=== PATIENT | female | born 1930 | race Caucasian/White ===

== ENCOUNTER 2017-12-28 13:03 | Inpatient (IN) | payer MEDICARE, OTHER ==
[~2017-12-28] VITALS: Ht 162.6 cm; Wt 64.4 kg
[2017-12-28 13:09] VITALS: BP 150/63
[2017-12-28] MEDS ORDERED: MAXZIDE-25 MG1 EACH PO (13:16)
[2017-12-28] MEDS ORDERED: EVISTA PO (13:16)
[2017-12-28] MEDS ORDERED: TIROSINT25 MCG PO (13:17)
[2017-12-28] MEDS ORDERED: LOVASTATIN 20 M20 MG PO (13:17)
[2017-12-28] MEDS ORDERED: COMBIGAN EYE DR10 ML INTRAOCULR (13:19)
[2017-12-28] MEDS ORDERED: LUMIGAN5 ML INTRAOCULR (13:19)
[2017-12-28 13:30] LABS: ABSOLUTE BASOPHILS 0.1 thou/uL (0.0-0.2); ABSOLUTE LYMPHOCYTES 1.4 thou/uL (0.8-5.3); ABSOLUTE MONOCYTES 0.6 thou/uL (0.0-1.2); ABSOLUTE NEUTROPHILS 7.8 thou/uL (1.6-8.1); BASOPHILS 0.7 %; EOSINOPHILS 0.3 %; HEMOGLOBIN 15.1 gm/dL (12.0-15.0); LYMPHOCYTES 13.7 %; MCH 30.1 pg (26.0-34.0); MCHC 33.4 g/dL (28.0-37.0); MCV 89.9 fL (80.0-100.0); MONOCYTES 6.2 %; MPV 7.6 fl. (7.2-11.1); NUCLEATED RBCS 0 /100WBC; PLATELET COUNT* 236 thou/uL (150-400); POLYS 79.1 %; RBC 5.01 mil/uL (4.20-5.00); RDW-CV 13.8 % (10.5-14.5); WBC 9.9 thou/uL (4.0-11.0)
[2017-12-28 13:41] LABS: CALCIUM 9.6 mg/dL (8.5-10.1); CREATININE 0.9 mg/dL (0.6-1.3); POTASSIUM 4.9 mmol/L (3.5-5.1)
[2017-12-28 13:54] LABS: APTT 24.1 Seconds (25.0-31.3)
[2017-12-28 13:57] LABS: ALBUMIN 3.6 g/dL (3.4-5.0); CK-MB MASS 3.3 ng/mL (<0.5-3.6); MAGNESIUM 1.7 mg/dL (1.8-2.4); TOTAL BILIRUBIN 0.4 mg/dL (<0.1-1.0); TOTAL PROTEIN 7.9 g/dL (6.4-8.2)
[2017-12-28 14:00] LABS: TROPONIN-I LEVEL 0.6 ng/mL (<0.06)
[2017-12-28 15:33] VITALS: BP 142/93
[2017-12-28 15:55] VITALS: BP 130/71
[2017-12-28 20:00] VITALS: BP 131/83
[2017-12-29 00:09] VITALS: BP 88/50
[2017-12-29 04:00] VITALS: BP 93/63
[2017-12-29 07:05] LABS: HEMATOCRIT 40.2 % (37.0-47.0); HEMOGLOBIN 13.6 gm/dL (12.0-15.0); MCH 30.1 pg (26.0-34.0); MCHC 33.7 g/dL (28.0-37.0); MCV 89.3 fL (80.0-100.0); RBC 4.5 mil/uL (4.20-5.00); RDW-CV 13.7 % (10.5-14.5); WBC 8.1 thou/uL (4.0-11.0)
[2017-12-29 07:25] LABS: ALBUMIN 2.9 g/dL (3.4-5.0); CALCIUM 8.9 mg/dL (8.5-10.1); MAGNESIUM 1.9 mg/dL (1.8-2.4); TOTAL BILIRUBIN 0.3 mg/dL (<0.1-1.0); TOTAL PROTEIN 6.7 g/dL (6.4-8.2)
[2017-12-29 07:36] LABS: POTASSIUM 3.5 mmol/L (3.5-5.1)
[2017-12-29 08:00] VITALS: BP 127/67
[2017-12-29] MEDS ORDERED: EVISTA PO (08:22)
[2017-12-29 12:00] VITALS: BP 132/75
--- NOTE | 2017-12-29 14:45 | EKG ---
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: Grabiel PÉREZ : 1930 Requested By: Mckinley Odom Order Number: [id number] MD: Bayron Escobar Measurements Intervals [place] Rate: 104 P: -14 [place]: 185 QRS: -70 QRSD: 133 T: -34 QT: 345 QTc: 454 Interpretive Statements Sinus tachycardia with PACs Right bundle branch block Anterolateral infarct, age indeterminate Baseline wander in lead(s) V6 No previous ECG available for comparison Electronically Signed On 12-29-2017 14:44:47 CDT by Bayron Escobar [email or web address] <ELECTRONICALLY SIGNED> By: Bayron Escobar MD, FACC 12/29/17 1444 1311 1311 Bayron Escobar MD, FAC /EPI
[2017-12-29 16:00] VITALS: BP 118/66
[2017-12-29 20:00] VITALS: BP 123/73
[2017-12-30] VITALS: BP 112/65
[2017-12-30 03:59] LABS: HEMATOCRIT 39.8 % (37.0-47.0); HEMOGLOBIN 13.3 gm/dL (12.0-15.0); MCH 30.3 pg (26.0-34.0); MCHC 33.5 g/dL (28.0-37.0); MCV 90.4 fL (80.0-100.0); MPV 7.8 fl. (7.2-11.1); RBC 4.41 mil/uL (4.20-5.00); RDW-CV 13.8 % (10.5-14.5); WBC 8.7 thou/uL (4.0-11.0)
[2017-12-30 04:00] VITALS: BP 111/78
[2017-12-30 04:16] LABS: ANION GAP 8 mmol/L (7-16); BUN 17 mg/dL (7-18); CALCIUM 8.8 mg/dL (8.5-10.1); CHLORIDE 101 mmol/L (98-107); CO2 29 mmol/L (21-32); GLUCOSE 108 mg/dL (70-99); MAGNESIUM 1.9 mg/dL (1.8-2.4); POTASSIUM 3.9 mmol/L (3.5-5.1); SODIUM 138 mmol/L (136-145)
[2017-12-30 04:34] LABS: CHOLESTEROL 147 mg/dL (<200); HDL CHOLESTEROL 50 mg/dL (>40); LDL CHOLESTEROL 63 mg/dL (<100); SERUM ASSESSMENT CLEAR; TC:HDL 2.9 Ratio (Not establshd); TRIGLYCERIDE 174 mg/dL (<150); VLDL 35 mg/dL (<40)
[2017-12-30 08:30] VITALS: BP 135/80
[2017-12-30] MEDS ORDERED: XARELTO15 MG PO (09:24)
[2017-12-30] MEDS ORDERED: XARELTO20 MG PO (09:24)
--- NOTE | 2017-12-30 10:36 | CON ---
[facility] [address] [place] [address] CONSULTATION Name: DESIREE RAMON Room: [address] IN M.R.#: [id number] Admission: 12/28/17 Attend Phys: Manny Powell, Discharge: Date of : 34 Report #: [id number] THIS REPORT FOR: //name// CC: Manny Oropeza DATE OF SERVICE: 12/29/2017 REFERRING PHYSICIAN: Manny Powell M.D. CHIEF COMPLAINT: Shortness of breath. HISTORY OF PRESENT ILLNESS: The patient is an 87-year-old female who gives a history of developing shortness of breath. She states that her shortness of breath was actually noticeable back in August of this year. It was intermittent, but was not enough that it limited her activity. It was not until the last 24-48 hours that her shortness of breath suddenly worsened. She had no other associated symptoms during the course of her acute worsening shortness of breath. She denied palpitations, cough, hemoptysis, abdominal pain, chest pain. She did not have any ankle swelling or calf tenderness. According to the patient and the family that is present, she did have a trip to [facility], a ride in a car for approximately 2 hours at the most, but they did have intermittent stops. ALLERGIES: PENICILLIN. SOCIAL HISTORY: Lifelong nonsmoker. She is and lives with her . PAST MEDICAL HISTORY: Hysterectomy, hypothyroidism. REVIEW OF SYSTEMS: System review negative other than what is outlined above. FAMILY HISTORY: Positive for hypertension. There is no family history of thromboembolic disorder. MEDICATIONS: She is on IV heparin. PHYSICAL EXAMINATION: VITAL SIGNS: Blood pressure 127/67, respiratory rate 16 and nonlabored, pulse rate 67 and regular, temperature 98 degrees. GENERAL APPEARANCE: Awake, alert, oriented, in no respiratory distress. She is on room air, O2 saturation 97%. HEENT: Atraumatic. EYES: Pupils are round, equal, and reactive. Sclerae and conjunctivae are clear. Oral cavity is moist, [place] [address] CONSULTATION Name: DESIREE RAMON Room: [address] IN [facility].#: [id number] Admission: 12/28/17 Attend Phys: Manny Powell, Discharge: Date of : 32 Report #: [id number] NECK: There is no adenopathy, JVD, or fullness in the supraclavicular area. CHEST: Examination in the lying and sitting position anteriorly and posteriorly are clear bilaterally. No audible wheezes, rales or rhonchi. CARDIOVASCULAR: Regular rhythm without murmurs or rubs. No appreciable PVCs. ABDOMEN: Soft, without organomegaly or tenderness. EXTREMITIES: Negative for edema. No evidence of clubbing. SKIN: Warm and dry without rash. NEUROLOGIC: Moves all 4 extremities. Strength equal bilaterally. LABORATORY DATA: Today, her sodium 138, potassium 3.5, chloride 101, CO2 of 29, BUN of 20, creatinine 1.0. EGFR 53. On admission, her troponin was 0.6. ProBNP was just slightly elevated at 691. INR initially was 1.1. D-dimer was 4.74. Today, her hemoglobin and hematocrit are 13.6 and 40 with a white count of 8100, platelet count of 213,000. MEDICAL IMAGING STUDIES: Venous ultrasound studies of lower extremities are pending. CTA of the chest performed revealing extensive bilateral pulmonary emboli seen as proximal as a right main pulmonary artery, extending into the lobar, segmental and subsegmental areas. 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 ASSESSMENT: 1. Pulmonary emboli, etiology undetermined. 2. Anterior mediastinal mass, favoring a thymoma. RECOMMENDATION: The patient will continue with her anticoagulation, could transition to oral medication at this time. Venous Dopplers will be obtained. Echocardiogram is scheduled as well. On further discussion, she has no history of underlying malignancy. Although a CT of the abdomen and pelvis may be warranted to rule out occult carcinoma. We will go ahead and order these as well. <ELECTRONICALLY SIGNED> By: Ye Armstrong MD 12/30/17 1036 0858 1257[place] MD /nt
[2017-12-30 12:00] VITALS: BP 128/73
[2017-12-30 13:22] VITALS: BP 128/73
--- NOTE | 2017-12-30 15:27 | 2DMMODE ---
[place] [address] 2 D/M-MODE ECHOCARDIOGRAM Name: DESIREE RAMON Room: [address] IN [facility]#: [id number] Admission: 12/28/17 Attend Phys: Manny Cooper Discharge: 12/30/17 Date of : 34 Date of Service: 12/30/17 1526 Report #: [id number] THIS REPORT FOR: //name// APPROVED REPORT Study performed: 12/30/2017 11:30:20 EXAM: Comprehensive 2D, Doppler, and color-flow Echocardiogram Patient Location: In-Patient Room #: 219 Status: routine BSA: 1.71 HR: 86 bpm BP: 135/80 mmHg Rhythm: NSR Other Information Study Quality: Good Indications Pulmonary Embolism 2D Dimensions LVEF(%): 70.24 (>50%) IVSd: 10.26 (7-11mm) LVOT Diam: 19.84 (18-24mm) LVDd: 45.61 mm PWd: 9.79 (7-11mm) Ascending Ao: 36.43 (22-36mm) LVDs: 27.55 (25-40mm) Aortic Root: 35.92 mm Del Cid's LVEF: 70.24 % Volumes Left Atrial Volume (Systole) LA ESV Index: 20.60 mL/m2 Aortic Valve AoV Peak Beto.: 1.28 m/s AO Peak Gr.: 6.59 mmHg LVOT Max P.00 mmHg AO Mean Gr.: 3.66 mmHg LVOT Mean P.31 mmHg LVOT Max V: 0.87 m/s AO V2 VTI: 19.10 cm LVOT Mean V: 0.51 m/s LOTTIE (VTI): 2.22 cm2 LVOT V1 VTI: 13.69 cm Mitral Valve E/A Ratio: 0.57 [place] [address] 2 D/M-MODE ECHOCARDIOGRAM Name: DESIREE RAMON Room: [address]#: [id number] Admission: 12/28/17 Attend Phys: Manny Cooper Discharge: 12/30/17 Date of : 34 Date of Service: 12/30/17 1526 Report #: [id number] MV Decel. Time: 124.32 ms MV E Max Beto.: 0.52 m/s MV PHT: 36.05 ms MVA (PHT): 6.10 cm2 TDI E/Lateral E': 6.50 E/Medial E': 7.43 Medial E' Beto.: 0.07 m/s Lateral E' Beto.: 0.08 m/s Pulmonary Valve PV Peak Beto.: 0.83 m/s PV Peak Gr.: 2.76 mmHg Tricuspid Valve TR Peak Gr.: 29.80 mmHg RVSP: 39.00 mmHg Left Ventricle The left ventricle is normal size. There is normal LV segmental wall motion. There is normal left ventricular wall thickness. Left ventricular systolic function is normal. The left ventricular ejection fraction is within the normal range. LVEF is 55-60%. Grade I - abnormal relaxation pattern. Right Ventricle Right ventricle is dilated. The right ventricular systolic function is normal. Atria The left atrium size is normal. Right atrium is dilated. Aortic Valve The aortic valve is normal in structure. Trace aortic regurgitation. There is no aortic valvular stenosis. Mitral Valve The mitral valve is normal in structure. Mild mitral regurgitation. No evidence of mitral valve stenosis. Tricuspid Valve The tricuspid valve is normal in structure. Mild tricuspid regurgitation. The RVSP is 45 mmHg. Pulmonic Valve The pulmonary valve is normal in structure. Trace [place]mon[place] [address] 2 D/M-MODE ECHOCARDIOGRAM Name: DESIREE RAMON Room: [address] IN M.R.#: [id number] Admission: 12/28/17 Attend Phys: Manny Cooper Discharge: 12/30/17 Date of : 34 Date of Service: 12/30/17 1526 Report #: [id number] Great Vessels The aortic root is normal in size. The IVC is dilated. Pericardium There is no pericardial effusion. <Conclusion> LVEF is 55-60%. Right ventricle is dilated. Right atrium is dilated. Mild mitral regurgitation. Mild tricuspid regurgitation. The RVSP is 45 mmHg. <ELECTRONICALLY SIGNED> By: Armando Pradhan MD, [facility] 12/30/17 1526 1526 1526 Armando Pradhan MD, FACC /INF
== END 2017-12-30 15:02 | disposition home or self-care (01) | DRG 175 ==
LOC: M.ERS 13:03 → M.2W 14:08 → M.TBA-ER 14:08 → M.2W 16:07
PROVIDERS: Family Medicine; Internal Medicine Cardiovascular Disease; ADMIT Family Medicine
DX: I26.99 Other pulmonary embolism without acute cor pulmonale (principal); J98.59 Other diseases of mediastinum, not elsewhere classified; I82.432 Acute embolism and thrombosis of left popliteal vein; I10 Essential (primary) hypertension; D15.0 Benign neoplasm of thymus; E78.5 Hyperlipidemia, unspecified; R91.8 Other nonspecific abnormal finding of lung field; E03.9 Hypothyroidism, unspecified; H40.9 Unspecified glaucoma; Z90.49 Acquired absence of other specified parts of digestive tract; Z90.710 Acquired absence of both cervix and uterus; Z79.899 Other long term (current) drug therapy; Z88.0 Allergy status to penicillin; Z82.49 Family history of ischemic heart disease and other diseases of the circulatory system

== ENCOUNTER 2018-02-05 08:46 | Inpatient (IN) | payer MEDICARE, OTHER ==
[~2018-02-05] VITALS: Ht 165.1 cm; Wt 67.6 kg
[2018-02-05] VITALS (10 sets, daily range): BP systolic 124–171; BP diastolic 63–104
[~2018-02-05 08:46] MED LIST: COMBIGAN EYE DR10 ML INTRAOCULR; EVISTA PO; LOVASTATIN 20 M20 MG PO; LUMIGAN5 ML INTRAOCULR; MAXZIDE-25 MG1 EACH PO; TIROSINT25 MCG PO; XARELTO15 MG PO; XARELTO20 MG PO
[2018-02-05 10:10] LABS: HEMATOCRIT 44.8 % (37.0-47.0); HEMOGLOBIN 14.9 gm/dL (12.0-15.0); MCH 30.1 pg (26.0-34.0); MCHC 33.3 g/dL (28.0-37.0); MCV 90.1 fL (80.0-100.0); MPV 7.8 fl. (7.2-11.1); RBC 4.97 mil/uL (4.20-5.00); RDW-CV 14.2 % (10.5-14.5); WBC 7.2 thou/uL (4.0-11.0)
[2018-02-05 10:22] LABS: APTT 26.3 Seconds (25.0-31.3)
[2018-02-05 10:31] LABS: CALCIUM 9.4 mg/dL (8.5-10.1); CREATININE 0.8 mg/dL (0.6-1.3); POTASSIUM 3.6 mmol/L (3.5-5.1)
[2018-02-05 10:36] LABS: ALBUMIN 3.7 g/dL (3.4-5.0); TOTAL BILIRUBIN 0.4 mg/dL (<0.1-1.0); TOTAL PROTEIN 7.5 g/dL (6.4-8.2)
--- NOTE | 2018-02-05 17:55 | NUR ---
PATIENT TRANSFERRED FROM IR TO ROOM 118. PATIENT IS S/P LUNG BIOPSY WITH PNEUMOTHORAX. CHEST TUBE PLACED AND IS SET CURRENTLY TO -20CM SUCTION. PER IR NURSE THERE IS NO TIDALING PRESENT AT THIS TIME WITH SOME BUBBLING NOTED DURING INSPIRATION. CHEST XRAY IN AM TO EVALUATE AIR LEAK. VSS. PATIENT TOLERATING DINNER. DAUGHTER WITH PATIENT. ADMISSION HISTORY AND ASSESSMENT CHARTED. SMALL PUNCTURE SITE TO RIGHT BREAST WITH DERMABOND CLOSURE. TRANSPARENT DRESSING OVER CHEST TUBE SITE- NO SUBQ AIR NOTED. IV'S SALINE LOCKED. ORIENTED TO ROOM AND BED CONTROLS. PATIENT WILL BE BEDREST UNTIL 0. CALL LIGHT WITHIN REACH. WILL CONTINUE TO MONITOR.
--- NOTE | 2018-02-06 04:47 | NUR ---
PATIENT ORIENTED X4 ON HOURLY ROUNDS. DENIES PAIN. CHEST TUBE IN PLACE AT -20MMHG. SMALL BUBBLING ON INSPIRATION NOTED, PHYSICIANS AWARE. UP WITH STAND BY ASSIST TO BSC, VOIDING ADEQUATELY. VITALS STABLE. WILL CONINTUE TO MONITOR.
[2018-02-06 08:38] VITALS: BP 136/72
[2018-02-06 09:52] LABS: HEMATOCRIT 39.4 % (37.0-47.0); HEMOGLOBIN 13.1 gm/dL (12.0-15.0)
[2018-02-06 15:46] VITALS: BP 148/76
--- NOTE | 2018-02-06 16:14 | NUR ---
PT.UP IN CHAIR. DAUGHTER,ALCON, AT BEDSIDE. PT.HAS 3 DAUGHTERS THAT ARE SUPPORTIVE. PT.LIVES WITH HER BUT SHE SAID HE IS MORE OF AN OUTSIDE PERSON ,ISN'T IN THE HOUSE VERY MUCH AND HE LIKES TO BE WAITED ON. SHE DOES NOT DRIVE. DRIVES. DAUGHTERS GO [employer]OCERY SHOPPING SOMETIMES FOR THEM. PT.CLEANS AND COOKS,DOES LAUNDRY. HOPES TO GO HOME TOMORROW.
--- NOTE | 2018-02-06 16:22 | NUR ---
PATIENT REMAINS ALERT AND ORIENTED. DENIES PAIN. DR. CARNES ROUNDED ON PATIENT THIS AFTERNOON LEAK STILL NOTED PER CHEST TUBE. WILL RE EVALUATE TOMORROW. PATIENT AMBULATING IN ROOM WITH STANDBY ASSIST. VSS. TOLERATING MEALS. FAMILY AT BEDSIDE. CALL LIGHT WITHIN REACH. WILL CONTINUE TO MONITOR.
[2018-02-06 20:00] VITALS: BP 135/86
--- NOTE | 2018-02-07 04:36 | NUR ---
PATIENT ALERT AND ORIENTED X4. DENIES ANY PAIN OR NAUSEA. UP AD YAKOV IN ROOM. CHEST TUBE IN PLACE TO RIGHT SIDE. VITALS STABLE ON ROOM AIR. WILL CONTINUE TO MONITOR.
[2018-02-07 08:00] VITALS: BP 151/82
--- NOTE | 2018-02-07 15:30 | NUR ---
PT AMBULATED HALLS WITH SB ASSIST AND STEADY GAIT. MAINTAINTED O2 SATS 94% ON RA. PT EAGER TO GO HOME. DR OLMSTEAD NOTIFIED
--- NOTE | 2018-02-07 16:35 | NUR ---
PT AND DAUGHTER WISH TO BE DC. NO ORDERS RECEIVED. DISCUSSED WITH DR OLMSTEAD. PT AND FAMILY REQUESTING TO SPEAK TO DR OLMSTEAD. DR OLMSTEAD NOTIFIED
--- NOTE | 2018-02-07 18:28 | NUR ---
PT UP IN ROOM WITH STEADY GAIT. CT REMOVED THIS AM BY IR. PT GIVEN IS AND INSTRUCTED ON ITS USE. REMAINS ON RA. DENIES SOA. DAUGHTER AT BS AND UPDATED ON PLAN OF CARE
[2018-02-07 20:00] VITALS: BP 152/83
--- NOTE | 2018-02-08 07:05 | NUR ---
PATIENT PROGRESSING TOWARDS GOALS: PATIENT HAS RESTED WELL THROUGHOUT SHIFT. PATIENT COMPLIANT WITH INCENTIVE SPIROMETER USAGE AND ENCOURAGED TO KEEP UP WITH IT. PATIENT REMAINS WITHOUT RESPIRATORY ISSUES. VSS ON ROOM AIR. PATIENT UP INDEPENDENTLY WITH DAUGHTER AT THE BEDSIDE THROUGHOUT SHIFT. PATIENT DENIES PAIN AND DISCOMFORT. HOURLY ROUNDING OBSERVED. CALL LIGHT WITHIN REACH
[2018-02-08 08:30] VITALS: BP 131/66
[2018-02-08 12:37] VITALS: BP 131/66
[2018-02-08 13:04] VITALS: BP 131/66
[2018-02-08 13:28] VITALS: BP 131/66
--- NOTE | 2018-02-08 14:28 | NUR ---
PATIENT DISCHARGED FROM UNIT AT 1400. ALERT AND ORIENTED X 4. VITAL SIGNS STABLE ON ROOM AIR. UP AD YAKOV IN ROOM. IV DISCONTINUED. DENIES PAIN AND NAUSEA. DISCHARGE INSTRUCTIONS AND MEDICATION INFORMATION GIVEN TO PATIENT. LEFT WITH ALL BELONGINGS. PATIENT LEFT WITH DAUGHTER VIA CAR.
--- NOTE | 2018-05-02 06:10 | PATH ---
[address] [address] PATHOLOGY RPT PROCEDURE Name: DESIREE RAMON Room: [address] IN [facility]#: [id number] Admission: 02/05/18 Date of : 34 Discharge: 02/08/18 Report #: [id number] Path Case #: [id number] Note [facility] Accession Number: [id number] TESTS RESULT FLAG UNITS REF RANGE LAB Clinician Provided Cytology Information No. of containers..01 Slide Source: THYMIC CYST FLUID DIAGNOSIS: 02 THYMIC CYST FLUID INADEQUATE, INSUFFICIENT CELLS FOR STUDY. SPECIMEN CONSISTS OF BLOOD. Signed out by: 02 Mir Rodriguez MD, Pathologist NPI- [id number] Performed by: 01 Tracy Pierre, Lineworker (ASCP) FLAG LEGEND: L-Low Normal,H-High Normal,LL-Alert Low,HH-Alert High <-Panic Low,>-Panic High,A-Abnormal,AA-Critical Abnormal Performed at: [address] [place] [address] Alton Coles MD, [address] [place] [address] [facility], [place] [address] Mir Rodriguez MD, Specimen Comment: A duplicate report has been generated due to demographic updates. Performed at: [address], [place], [place] [id number] MD Alton Coles MD Phone: [phone]
== END 2018-02-08 14:00 | disposition home or self-care (01) | DRG 200 ==
LOC: M.LAB 08:46 → M.ORTHSURG 15:24 → M.TBA-ER 15:24 → M.ORTHSURG 15:42
PROVIDERS: Radiology Diagnostic Radiology; ADMIT Internal Medicine
PROC: 0W9930Z Drainage of Right Pleural Cavity with Drainage Device, Percutaneous Approach (ICD-10-PCS; principal; 2018-02-05)
PROC: B31S1ZZ Fluoroscopy of Right Pulmonary Artery using Low Osmolar Contrast (ICD-10-PCS; principal; 2018-02-05)
PROC: 0WBC3ZX Excision of Mediastinum, Percutaneous Approach, Diagnostic (ICD-10-PCS; principal; 2018-02-05)
DX: J95.811 Postprocedural pneumothorax (principal); J98.11 Atelectasis; I10 Essential (primary) hypertension; H40.9 Unspecified glaucoma; E78.5 Hyperlipidemia, unspecified; E32.8 Other diseases of thymus; Z96.1 Presence of intraocular lens; Z96.652 Presence of left artificial knee joint; Y84.8 Other medical procedures as the cause of abnormal reaction of the patient, or of later complication, without mention of misadventure at the time of the procedure; Y82.8 Other medical devices associated with adverse incidents; Y92.89 Other specified places as the place of occurrence of the external cause; Z86.718 Personal history of other venous thrombosis and embolism; Z79.01 Long term (current) use of anticoagulants; Z86.711 Personal history of pulmonary embolism; Z88.0 Allergy status to penicillin; Z90.710 Acquired absence of both cervix and uterus; Z98.42 Cataract extraction status, left eye; Z98.41 Cataract extraction status, right eye; Z79.2 Long term (current) use of antibiotics; Z79.899 Other long term (current) drug therapy

== ENCOUNTER → 2018-04-15 | Outpatient (CLI) | payer MEDICARE, OTHER | LOC: M.ULTRA 12:32 | DX: I26.99 Other pulmonary embolism without acute cor pulmonale (principal); I82.402 Acute embolism and thrombosis of unspecified deep veins of left lower extremity ==

== ENCOUNTER 2018-10-23 09:21 | Inpatient (IN) | payer MEDICARE, OTHER ==
[~2018-10-23] VITALS: Ht 165.1 cm; Wt 66.2 kg
--- NOTE | ~2018-10-23 | CON ---
[address] [address] CONSULTATION Name: DESIREE RAMON Room: [address] [place] [facility]#: [id number] Admission: 10/23/18 Attend Phys: Lynda Daniels Discharge: Date of : 34 Report #: [id number] THIS REPORT FOR: //name// CC: Bria Oropeza DATE OF SERVICE: 10/24/2018 LOCATION: The patient in [facility]. HISTORY OF PRESENT ILLNESS: The patient is a very pleasant 88-year-old female with a history of deep vein thrombosis and pulmonary emboli. She has also had mild increase in troponin without clear definition of coronary artery disease. She presented on this occasion with dyspnea on exertion and atypical chest discomfort. Dyspnea has been present for 2-3 days prior to admission. She had been on anticoagulant previously, but that has been discontinued. Risk factors for coronary artery disease include hypercholesterolemia, hypertension and a family history of coronary artery disease. PAST MEDICAL HISTORY: Remarkable for deep vein thrombosis and pulmonary emboli. REVIEW OF SYSTEMS: Remarkable for the following: CARDIOVASCULAR: She notes palpitations and described atypical chest discomfort. HEMATOLOGIC AND LYMPHATIC: There is a history of deep vein thrombosis. MUSCULOSKELETAL: She notes chronic arthritic complaints. PHYSICAL EXAMINATION: GENERAL: Demonstrates an elderly female in no acute distress. VITAL SIGNS: Blood pressure 130/70, pulse rate is 74, respirations are 18 per minute. NECK: Jugular venous pressure is normal. CHEST: Clear. CARDIAC: Reveals normal first and second heart sounds with a soft systolic murmur. ABDOMEN: Mildly obese. EXTREMITIES: Reveal trace edema. Electrocardiogram revealed sinus rhythm with rare PACs, possible inferior scar and possible anterior scar and nonspecific ST-T alterations [place] [address] CONSULTATION Name: DESIREE RAMON Room: [address] [place]#: [id number] Admission: 10/23/18 Attend Phys: Lynda Daniels Discharge: Date of : 34 Report #: [id number] Echocardiogram is reviewed and it demonstrates normal systolic function with estimated ejection fraction of 60%-65% with mild diastolic dysfunction. IMPRESSION: 1. Dyspnea. 2. Atypical chest pain. 3. History of deep venous thrombosis with pulmonary emboli. RECOMMENDATIONS: 1. Given the echocardiogram, which demonstrates no significant abnormalities of systolic function and the atypical chest discomfort, I would not recommend proceeding with a stress test at this juncture. 2. Would recommence anticoagulant and samples of Xarelto are to be provided. 3. Follow up in our office. Thank you for allowing us to see the patient in cardiovascular assessment. By: [id number] Fajardo MD, FACC /nt
[2018-10-23 09:38] VITALS: BP 126/81
[2018-10-23 10:17] LABS: ABSOLUTE LYMPHOCYTES 1.5 thou/uL (0.8-5.3); ABSOLUTE MONOCYTES 0.6 thou/uL (0.0-1.2); ABSOLUTE NEUTROPHILS 5.6 thou/uL (1.6-8.1); BASOPHILS 0.6 %; EOSINOPHILS 0.5 %; HEMATOCRIT 44.6 % (37.0-47.0); HEMOGLOBIN 15.4 gm/dL (12.0-15.0); LYMPHOCYTES 19.1 %; MCH 30.1 pg (26.0-34.0); MCHC 34.5 g/dL (28.0-37.0); MCV 87.3 fL (80.0-100.0); MPV 7.7 fl. (7.2-11.1); NUCLEATED RBCS 0 /100WBC; PLATELET COUNT* 258 thou/uL (150-400); POLYS 71.8 %; RBC 5.11 mil/uL (4.20-5.00); WBC 7.9 thou/uL (4.0-11.0)
[2018-10-23 10:35] LABS: ANION GAP 10 mmol/L (7-16); BUN 21 mg/dL (7-18); CALCIUM 8.9 mg/dL (8.5-10.1); CHLORIDE 99 mmol/L (98-107); CO2 28 mmol/L (21-32); CREATININE 0.9 mg/dL (0.6-1.3); GLUCOSE 135 mg/dL (70-99); POTASSIUM 3.9 mmol/L (3.5-5.1); SODIUM 137 mmol/L (136-145); TROPONIN-I LEVEL <0.06 ng/mL (<0.06)
[2018-10-23 10:40] LABS: ALBUMIN 3.2 g/dL (3.4-5.0); ALKALINE PHOSPHATASE 69 U/L (46-116); NT-PRO BRAIN NAT PEPTIDE 302 pg/mL (<300); SGOT 18 U/L (15-37); SGPT 21 U/L (30-65); TOTAL BILIRUBIN 0.5 mg/dL (<0.1-1.0); TOTAL PROTEIN 7.3 g/dL (6.4-8.2)
[2018-10-23 15:20] VITALS: BP 152/74
--- NOTE | 2018-10-23 15:57 | EKG ---
[place] [address] ELECTROCARDIOGRAM REPORT Name: DESIREE RAMON Room: [place] [address] ADM IN M.R.#: [id number] Admission: 10/23/18 Attend Phys: Lynda Daniels Discharge: Date of : 32 Report #: [id number] THIS REPORT FOR: //name// [facility] ED Test Date: 2018-10-23 Test Time: 09:55:46 Pat Name: DESIREE RAMON Department: Room: [facility] Gender: F Inclusion Internship: Grabiel LOMELI : 1930 Requested By: Manas Rudolph Order Number: [id number] MD: Bayron Escobar Measurements Intervals [place] Rate: 73 P: -14 PA: 230 QRS: -59 QRSD: 88 T: 68 QT: 372 QTc: 410 Interpretive Statements Sinus rhythm Atrial premature complexes in couplets Prolonged PA interval Inferior infarct, old Delayed R-wave progression Baseline wander in lead(s) I,II,aVR Compared to ECG 12/28/2017 13:11:54 Atrial premature complex(es) now present First degree AV block now present Sinus tachycardia no longer present Right bundle-branch block no longer present Myocardial infarct finding still present Electronically Signed On 10-23-2018 15:57:20 CDT by Bayron Escobar [email or web address] <ELECTRONICALLY SIGNED> By: Bayron Escobar MD, [facility] 10/23/18 1557 0955 0955 Bayron Escobar MD, [facility] /EPI
--- NOTE | 2018-10-23 16:28 | 2DMMODE ---
[place] [address] 2 D/M-MODE ECHOCARDIOGRAM Name: DESIREE RAMON Room: [place] [address] ADM IN [facility]#: [id number] Admission: 10/23/18 Attend Phys: Bria Ghotra Discharge: Date of : 34 Date of Service: 10/23/18 1627 Report #: [id number] THIS REPORT FOR: //name// APPROVED REPORT Study performed: 10/23/2018 15:51:25 EXAM: Comprehensive 2D, Doppler, and color-flow Echocardiogram Patient Location: In-Patient Room #: [facility] Status: routine BSA: 1.74 HR: 59 bpm BP: 152/74 mmHg Rhythm: NSR Other Information Study Quality: Good Indications Dyspnea 2D Dimensions IVSd: 10.00 (7-11mm) LVOT Diam: 19.76 (18-24mm) LVDd: 48.82 mm PWd: 9.52 (7-11mm) Ascending Ao: 37.34 (22-36mm) LVDs: 27.20 (25-40mm) Aortic Root: 40.08 mm Volumes Left Atrial Volume (Systole) LA ESV Index: 23.10 mL/m2 Aortic Valve AoV Peak Beto.: 1.16 m/s AO Peak Gr.: 5.39 mmHg LVOT Max P.71 mmHg AO Mean Gr.: 2.50 mmHg LVOT Mean P.26 mmHg LVOT Max V: 0.82 m/s AO V2 VTI: 22.18 cm LVOT Mean V: 0.52 m/s LOTTIE (VTI): 2.73 cm2 LVOT V1 VTI: 19.73 cm Mitral Valve E/A Ratio: 1.11 MV Decel. Time: 211.34 ms MV E Max Beto.: 0.63 m/[place] [address] 2 D/M-MODE ECHOCARDIOGRAM Name: DESIREE RAMON Room: [address] IN M.R.#: [id number] Admission: 10/23/18 Attend Phys: Bria Ghotra Discharge: Date of : 34 Date of Service: 10/23/18 1627 Report #: [id number] MV PHT: 61.29 ms MVA (PHT): 3.59 cm2 TDI E/Lateral E': 6.30 E/Medial E': 9.00 Medial E' Beto.: 0.07 m/s Lateral E' Beto.: 0.10 m/s Pulmonary Valve PV Peak Beto.: 0.62 m/s PV Peak Gr.: 1.55 mmHg Left Ventricle The left ventricle is normal size. There is normal LV segmental wall motion. There is normal left ventricular wall thickness. Left ventricular systolic function is normal. LVEF is 60-65%. Transmitral Doppler flow pattern suggests impaired LV relaxation. Right Ventricle The right ventricle is normal size. The right ventricular systolic function is normal. Atria The left atrium size is normal. The right atrium size is normal. Aortic Valve Mild aortic valve sclerosis. Trace aortic regurgitation. There is no aortic valvular stenosis. Mitral Valve The mitral valve is normal in structure. Trace mitral regurgitation. No evidence of mitral valve stenosis. Tricuspid Valve The tricuspid valve is normal in structure. There is no tricuspid valve regurgitation noted. Pulmonic Valve The pulmonary valve is normal in structure. Trace pulmonic regurgitation. Great Vessels The aortic root is normal in size. IVC is normal in size and collapses >50% with [place] [address] 2 D/M-MODE ECHOCARDIOGRAM Name: DESIREE RAMON Room: [address] IN [facility]#: [id number] Admission: 10/23/18 Attend Phys: Bria Ghotra Discharge: Date of : 34 Date of Service: 10/23/18 1627 Report #: [id number] There is no pericardial effusion. <Conclusion> The left ventricle is normal size. There is normal left ventricular wall thickness. Left ventricular systolic function is normal. LVEF is 60-65%. Transmitral Doppler flow pattern suggests impaired LV relaxation. Mild aortic valve sclerosis. Trace aortic regurgitation. Trace mitral regurgitation. IVC is normal in size and collapses >50% with inspiration. <ELECTRONICALLY SIGNED> By: Bayron Escobar MD, FACC 10/23/18 1627 26 26 Bayron Escobar MD, FACC /INF
--- NOTE | 2018-10-23 17:05 | NUR ---
NEW ADDMISSION RECEIVED FROM ER FOR SOB AND NON RESOLVING PE.RECEIVED REPORT AND ASSUMED CARE OF PT AT 1505.PT IS A/OX4.TRACING SR WITH 1 DEGREE BBB ON THE MONITOR.ON RA IV PATENT AND SALINE LOCKED.NO COMPLAINTS OF SOB AND CHEST PAIN AT THE MONENT.ADDMISSION PROCEDURE COMPLETED AND ASSESSMENT DONE.NO WOUNDS AND SKIN ISSUES,NO EDEMA.UP AD YAKOV.NO SYMPTOMS OF PE.VSS.CALL LIGHT AND FALL PRECAUTIONS IN PLACE.WILL CONTINUE TO MONITOR.
[2018-10-23 18:04] VITALS: BP 148/80
--- NOTE | 2018-10-23 18:51 | NUR ---
I have reviewed the documentation by NED from 729 to 1850 and I concur with it.
[2018-10-23 20:20] VITALS: BP 128/65
[2018-10-24] VITALS: BP 105/47
[2018-10-24 04:00] VITALS: BP 123/71
--- NOTE | 2018-10-24 06:31 | NUR ---
PT CARE ASSUMED AT 1930. SAT MAINTAINED IN RA. ALERT AND ORIENTED X4. CALL LIGHT WITHIN REACH AND BED IN LOW POSITION. DENIES PAIN AND SOB. HOURLY ROUNDING DONE FOR PT SAFETY.
[2018-10-24 08:00] VITALS: BP 148/58
--- NOTE | 2018-10-24 09:00 | NUR ---
RECEIVED REPORT AND ASSUMED CARE OF PT AT 0730.PT IS A/OX4.SR ON THE MONITOR.ON RA.IV PATENT AND SALINE LOCKED.PT NPO FOR CARDIOLOGY CONS.PULMONOLOGY CONS DONE.CALL LIGHT AND FALL PRECAUTIONS IN PLACE.WILL CONTINUE TO MONITOR.
--- NOTE | 2018-10-24 11:10 | NUR ---
CM completed initial assessment to discuss d/c plan. pt A&Ox4. pt daughter, Jenny, present at time of discussion. pt lives at home w/spouse & receives add'l family support from daughters. pt has walker at home from knee surgery 15 yrs ago; however, pt states she does not use walker. pt had HH in past w/knee surgery but doesnt recall which company b/c it was so long ago. no hx w/SNF. plans to d/c to home and has no anticipated needs at this time. CM to remain available to assist as needed.
[2018-10-24 11:48] VITALS: BP 126/75
--- NOTE | 2018-10-24 15:33 | NUR ---
NEW ADDMISSION RECEIVED FROM ER FOR CHF AND DIARRHEA.RECEIVED REPORT AND ASSUMED CARE OF PT AT 1430.PT IS A/OX4.TRACING SR WITH PVCS ON THE MONITOR.ON 2 LNC.ON RA.IV PATENT AND SALINE LOCKED.ALL ADMISSION PAPER WORK AND ASSESSMENT COMPLETED.NO SKIN ISSUES.EDEMA ON BILATERAL LOWER EXTREMITIES.UP STAND BY.PT IS DNR ACC TO HIM.ADVANCED DIRECTIVE PAPER WORK TO BE COLLECTED FROM FAMILY .CALL LIGHT AND FALL PRECAUTIONS IN PLACE .WILL CONTINUE TO MONITOR.
[2018-10-24 16:43] VITALS: BP 132/66
--- NOTE | 2018-10-24 18:10 | NUR ---
VSS.TRACING SR ON MONITOR.IV PATENT AND SALINE LOCKED.ON RA.US VENOUS DOPPLER COMPLETED ON BILATERAL LOWER EXTREMITIES.A/OX4.UP AD YAKOV.CALL LIGHT AND FALL PRECAUTIONS IN PLACE.WILL CONTINUE TO MONITOR.
[2018-10-24 20:10] VITALS: BP 125/67
[2018-10-25 00:15] VITALS: BP 113/57
[2018-10-25 03:55] VITALS: BP 113/63
--- NOTE | 2018-10-25 05:00 | NUR ---
PT CARE ASSUMED AT 1930. SAT MAINTAINED IN RA. CALL LIGHT WITHIN REACH AND BED IN LOW POSITION. DENIES PAIN AND SOB. ALERT AND ORIENTED X4. HOURLY ROUNDING DONE FOR PT SAFETY.
[2018-10-25 08:00] VITALS: BP 139/76
[2018-10-25 10:54] VITALS: BP 139/76
[2018-10-25 12:20] VITALS: BP 115/66
--- NOTE | 2018-10-25 14:44 | NUR ---
ORDER ERCEIVED OT DISCHARG EPATIENT HOME TO SELF CARE. MED REC, MEDICATION EDUCATION, STROKE EDUCATION, AND NEE DFOR FOLLOW UP CT IN 6 MONTHS COVERED AND STATED UDERSTOOD BY EULOGIO. IV AND TELEMETRY PACK REOMVED. PATIENT AND DAUGHTER GIVEN AMPLE TIME FOR ALL QUESTIONS TO BE ANSWERED. EULOGIO CHOSE TO AMBULATE WITH NURSING STAFF AND DAUGHTER TO AWAITING CAR. DISCHARGE TIME OF 12:20. PATIENT IN NO SIGNS OF DISTRESS AT TIME OF DISCHARGE.
--- NOTE | 2018-10-26 10:30 | CON ---
[address] [address] CONSULTATION Name: DESIREE RAMON Room: [address] M.R.#: [id number] Admission: 10/23/18 Attend Phys: Phil Nguyen MD Discharge: 10/25/18 Date of : 34 Report #: [id number] THIS REPORT FOR: //name// CC: Bria Oropeza DATE OF SERVICE: 10/24/2018 NEW PATIENT EVALUATION CHIEF COMPLAINT: Shortness of breath on exertion. HISTORY OF PRESENT ILLNESS: The patient is a pleasant 88-year-old woman with history of shortness of breath on exertion for the last 2 days. She states she has been having shortness of breath with minimal activity. Denies cough, wheezing, hemoptysis or chest pain. In last November, she had bilateral pulmonary PE. She was on treatment on anticoagulation with Xarelto from November to July for 6 months. She has been off since then. She denies any cough, wheezing. Her chest CT, which I have reviewed showed right middle lobe, right lower lobe clots; however, it looks like chronic with partial occlusion. Cannot exclude acute. REVIEW OF SYSTEMS: PULMONARY: As above. CARDIOLOGY: Shortness of breath on exertion. Denies chest pain. LOWER EXTREMITIES: Denies increased swelling or pain. 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 ALLERGIES: PENICILLIN. HOME MEDICATIONS: Reviewed. 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 As above, review of systems reviewed. Discussed with patient and family, reviewed records of 14-point review of systems as above. PHYSICAL EXAMINATION: GENERAL: The patient is pleasant, not in distress. VITAL SIGNS: Stable, afebrile, blood pressure 123/71, respiratory rate 16. [place] [address] CONSULTATION Name: DESIREE RAMON Room: [address] IN ..#: [id number] Admission: 10/23/18 Attend Phys: Phil Nguyen MD Discharge: 10/25/18 Date of : 34 Report #: [id number] HEAD AND NECK: Neck is supple. Oral mucosa is clear. CHEST: Clear to auscultation. CARDIOVASCULAR: Regular rhythm. ABDOMEN: Soft, nontender. EXTREMITIES: No edema. Has varicose veins. PSYCHIATRIC: Alert, oriented, pleasant. Normal affect. NEUROLOGIC: No focal deficit. LABORATORY AND OTHER DATABASE: His chest CT, which I have reviewed, shows a right middle lobe, right lower lobe partial occluding pulmonary embolism, acute versus chronic. There was no infiltrate. Her proBNP was 302. Troponin was normal. 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 I reviewed her echocardiogram. She does not have RV dysfunction or strain. She does not have pulmonary hypertension, suspect that this is less likely to be chronic. However, with the previous history of non-ST elevation myocardial infarction per history, cardiology has been consulted. At this time, I recommend anticoagulation. She may need long anticoagulation. Followup is recommended to evaluate risk and benefit. The patient denies any history of recent bleeding. No history of tumors or recurrent falls. Recommended anticoagulation with Xarelto as before and followup. Mediastinal cyst. Followup CT recommended in 6 months. Cardiology followup is in process. We will obtain lower extremity Dopplers. <ELECTRONICALLY SIGNED> By: Minh Davis MD 10/26/18 1030 1218 [id number] Davis MD /nt
== END 2018-10-25 12:20 | disposition home or self-care (01) | DRG 299 ==
LOC: M.ERS 09:21 → M.2W 13:38 → M.TBA-ER 13:38 → M.2W 13:38
PROVIDERS: Emergency Medicine Emergency Medical Services; ADMIT Internal Medicine
DX: I82.4Z1 Acute embolism and thrombosis of unspecified deep veins of right distal lower extremity (principal); I26.99 Other pulmonary embolism without acute cor pulmonale; I27.82 Chronic pulmonary embolism; I10 Essential (primary) hypertension; H40.9 Unspecified glaucoma; Z96.652 Presence of left artificial knee joint; E03.9 Hypothyroidism, unspecified; Z90.49 Acquired absence of other specified parts of digestive tract; Z90.710 Acquired absence of both cervix and uterus; Z98.42 Cataract extraction status, left eye; Z98.41 Cataract extraction status, right eye; Z86.718 Personal history of other venous thrombosis and embolism; Z88.0 Allergy status to penicillin; I25.2 Old myocardial infarction; Z79.899 Other long term (current) drug therapy

== ENCOUNTER 2019-02-02 12:55 | Emergency (ER) | payer MEDICARE, OTHER ==
[~2019-02-02] VITALS: Ht 162.6 cm; Wt 64.9 kg
[2019-02-02] MEDS ORDERED: HYDROCHLOROTH12.5 M1 PO (13:11)
[2019-02-02] MEDS ORDERED: NORCO 5-325 TA1 EAC1 PO (14:04)
[2019-02-02 15:01] VITALS: BP 148/71
== END 2019-02-02 15:03 | disposition home or self-care (01) ==
LOC: M.ERS 12:55
DX: M25.461 Effusion, right knee (principal); I10 Essential (primary) hypertension; Z90.49 Acquired absence of other specified parts of digestive tract; Z90.710 Acquired absence of both cervix and uterus; Z96.652 Presence of left artificial knee joint; Z86.718 Personal history of other venous thrombosis and embolism; Z88.0 Allergy status to penicillin; Z86.711 Personal history of pulmonary embolism

== ENCOUNTER → 2019-08-31 | Outpatient (CLI) | payer MEDICARE, OTHER ==
[~2019-08-31] MED LIST changes: +HYDROCHLOROTH12.5 M1 PO; +NORCO 5-325 TA1 EAC1 PO
== END ==
LOC: M.ULTRA 11:00
DX: I82.432 Acute embolism and thrombosis of left popliteal vein (principal); I82.401 Acute embolism and thrombosis of unspecified deep veins of right lower extremity

== ENCOUNTER → 2021-06-12 | Outpatient (CLI) | payer MEDICARE, OTHER ==
--- NOTE | 2021-06-12 18:03 | CARDNUC ---
[place] [address] CARDIAC NUCLEAR IMAGING REPORT Name: DESIREE RAMON Room: [facility]#: [id number] Admission: 06/12/21 Attend Phys: Bayron Escobar, Discharge: Date of : 34 Date of Service: 06/12/21 1803 Report #: [id number] THIS REPORT FOR: cc: Arnulfo Oropeza MD, Tuongvan T. MD Liston, Michael J. MD [facility] ~ ADDENDUM APPROVED REPORT Imaging Protocol: Stress Tc-99m/Rest Tc-99m 1 day Study performed: 06/12/2021 09:11:42 Indication: Chest pain Patient Location: Out-Patient Stress Nurse: Shanda Hamm RN Ht: 5 ft 4 in Wt: 147 lbs BSA: 1.72 m2 BMI: 25.22 Medical History Medical History: HTN, Hyperlipidemia, CAD non obstructive Medications: amlodipine, asa, maxzide, rosuvastatin Allergies: penicillin Cardiac Risk Factors: Age, HTN, FHX of CAD, Hyperlipidemia, PVD Exercise History: Sedentary Resting Data Rest SPECT myocardial perfusion imaging was performed in supine position 30 minutes following the intravenous injection of 9.8 mCi of Tc-99m Sestamibi. Time of rest injection: 08:00 The images were gated to evaluate regional wall motion and calculate left ventricular ejection fraction. Administration Route: IV Administration Site: Left AC Pharmacologic Stress Pharmacologic stress test was performed by injecting Regadenoson 0.4 mg IV push over 10-15 seconds immediately followed by the intravenous injection of 31.9 mCi of Tc-99m Sestamibi. Time of stress injection: 09:20 Administration Route: IV Administration Site: [place] [address] CARDIAC NUCLEAR IMAGING REPORT Name: DESIREE RAMON Room: [facility]#: [id number] Admission: 06/12/21 Attend Phys: Bayron Escobar, Discharge: Date of : 34 Date of Service: 06/12/21 1803 Report #: [id number] Heart Rate at time of stress injection: 85 bpm. Gated Stress SPECT was performed 45 minutes after stress injection. The images were gated to evaluate regional wall motion and calculate left ventricular ejection fraction. Stress Test Details Stress Test: Pharmacologic stress testing performed using 0.4 mg of regadenoson per 5 mL given IV over 10 seconds. Reason for pharmacologic stress test: physical limitation. HR Max Heart Rate (APMHR): 132 bpm Resting HR: 66 bpm Target HR (85% APMHR): 112 bpm Max HR Achieved: 89 bpm % of APMHR: 67 Recovery HR: 89 bpm BP Resting BP: 121/65 mmHg Max BP: 220/88 mmHg Recovery BP: 188/79 mmHg ECG Resting ECG: Sinus Rhythm Stress ECG: Sinus rhythm ST Change: None Arrhythmia: None Recovery ECG: Sinus rhythm Recovery ST Change: None Clinical Reason for Termination: Completed protocol The patient tolerated Lexiscan infusion without significant cardiac symptoms. Nurse Comments pt too generalized weak to walk on treadmill Stress ECG Conclusion The baseline twelve-lead EKG shows sinus rhythm without significant ST segment abnormality. EKGs obtained during and post Lexiscan infusion show sinus rhythm with no significant ST segment or T wave changes when compared to baseline. There were no stress-induced arrhythmias. Study Quality Study: [place] [address] CARDIAC NUCLEAR IMAGING REPORT Name: DESIREE RAMON Room: [facility]#: [id number] Admission: 06/12/21 Attend Phys: Bayron Escobar, Discharge: Date of : 34 Date of Service: 06/12/21 1803 Report #: [id number] Artifact: No artifact Study Data At rest, the left ventricular ejection fraction was 70%.. Post stress, the left ventricular ejection was 61%.. TID = 0.93. Perfusion Perfusion images obtained at rest and post Lexiscan stress show uniform uptake of the radioisotope throughout the myocardium. There were no defects to suggest infarct or ischemia. Wall Motion Normal left ventricular wall motion. Nuclear Conclusion ECG Findings: negative for ischemia Clinical Findings: negative for ischemia Nuclear Findings: negative for ischemia Exercise Capacity: not assessed Left Ventricular Function: normal Risk Study: low Perfusion images show no defect to suggest infarct or ischemia. Left ventricular systolic function appears normal on gated studies. This is a low risk study. <Conclusion> The baseline twelve-lead EKG shows sinus rhythm without significant ST segment abnormality. EKGs obtained during and post Lexiscan infusion show sinus rhythm with no significant ST segment or T wave changes when compared to baseline. There were no stress-induced arrhythmias. <ELECTRONICALLY SIGNED> By: Bayron Escobar MD, FACC 06/12/211802 02 02 Bayron Escobar MD, FACC /INF
== END ==
LOC: M.NUC 05-15 16:18
PROVIDERS: ATTEND Internal Medicine Cardiovascular Disease
DX: I25.10 Atherosclerotic heart disease of native coronary artery without angina pectoris (principal)